=== PATIENT | female | born 1955 | race Caucasian/White ===

== ENCOUNTER 2024-09-24 23:32 | Inpatient (IN) | payer MEDICAID ==
[~2024-09-24] VITALS: Ht 170.2 cm; Wt 117.5 kg
[2024-09-25] VITALS (12 sets, daily range): BP systolic 84–129; BP diastolic 53–77; PULSE 74–95; RESP 14–18; TEMP 96.4–98.7; O2SAT 94–99
[2024-09-25 00:32] LABS: BASOPHILS % (AUTO) 0.4 % (0-1); EOSINOPHILS % (AUTO) 0.3 % (0-6); HEMATOCRIT 38.1 % (35.0-45.0); HEMOGLOBIN 12.7 g/dl (12.0-16.0); LYMPHOCYTES # (AUTO) 1.3 X10'3 (1.1-4.8); LYMPHOCYTES % (AUTO) 15.5 % (21-51); MEAN CORPUSCULAR HEMOGLOBIN 29.9 PG (27.0-31.0); MEAN CORPUSCULAR HGB CONC 33.3 g/dL (33.0-36.5); MEAN PLATELET VOLUME 7.4 FL (7.4-10.4); MONOCYTES # (AUTO) 0.8 X10'3 (0-0.9); MONOCYTES % (AUTO) 9.2 % (2-12); NEUTROPHILS # (AUTO) 6.3 X10'3 (1.8-7.7); NEUTROPHILS % (AUTO) 74.6 % (42-75); PLATELET COUNT 141 X10'3 (140-440); RED BLOOD COUNT 4.23 X10'6 (4.20-5.60); RED CELL DISTRIBUTION WIDTH 14.1 % (11.5-14.5); WHITE BLOOD COUNT 8.5 X10'3 (4.5-11.0)
[2024-09-25 00:37] LABS: APTT 56 SECONDS (22-32); INR 1.1 INR
[2024-09-25 00:52] LABS: ABG HCO3 19.6 mmol/L (21.0-28.0); ABG OXYGEN SATURATION 95.4 % (94.0-98.0); ABG PH (T) 7.396 (7.350-7.450); ABG PO2 (T) 73.8 mmHg (83.0-108.0); ALLEN'S TEST Modified; FCOHb 0.3 % (0.5-1.5); FHHb 4.6 % (0.0-5.0); FLOW 15 L/min; FMetHb 0.3 % (0.0-1.5); FO2Hb 94.8 % (94.0-98.0); MODE MASK - NRB; TOTAL HEMOGLOBIN 13.3 G/dl (12.0-16.0)
[2024-09-25] MEDS: heparin 25,000 UNIT/250ml bag 250 ML IV PRN ×2 (01:02→03:27)
[2024-09-25] MEDS: heparin 10,000 units/1 ML INJ IV PRN ×2 (01:02→05:42)
[2024-09-25] MEDS: MESSAGE TO NURSING IV ONE ×4 (01:15→22:15)
[2024-09-25 01:16] LABS: D-DIMER 16.42 MG/L FEU (0-0.50)
[2024-09-25 01:30] LABS: ALANINE AMINOTRANSFERASE 28 U/L (12-78); ALBUMIN 3.2 G/DL (3.4-5.0); ALKALINE PHOSPHATASE 65 IU/L (46-116); ANION GAP 8 (8-16); ASPARTATE AMINO TRANSFERASE 29 U/L (10-37); BILIRUBIN,TOTAL 0.7 MG/DL (0.1-1.0); BLOOD UREA NITROGEN 22 MG/DL (7-18); BUN/CREATININE RATIO 24.4 (10.0-20.0); CALCIUM 8.5 MG/DL (8.5-10.1); CHLORIDE 110 MMOL/L (99-107); GLUCOSE 133 MG/DL (70-104); POTASSIUM 3.4 MMOL/L (3.5-5.1); SODIUM 144 MMOL/L (135-145); TOTAL PROTEIN 6.3 G/DL (6.4-8.2); eCRCL 57 ML/MIN; eGFR 62 ML/MIN
[2024-09-25] MEDS ORDERED: iohexol 350MG/ML 100ml bottle IV ONE (01:42)
[2024-09-25] MEDS: normal saline 1000ml 1,000 ML IV ONE (02:27)
[2024-09-25] MEDS: amiodarone 150mg/dext, iso-os 100 ML IV ONE (03:01)
[2024-09-25] MEDS: HEPARIN DRIP DVT/PE -**PHARMACIST TO DOSE IV ONE (03:27)
[2024-09-25] MEDS: HEPARIN DRIP INITAL BOLUS --- DO NOT GIVE/ORDER MC ONE ×2 (03:28)
[2024-09-25] MEDS ORDERED: magnesium sulf-water 2g/50mL 50 ML IV PRN (03:50)
[2024-09-25] MEDS ORDERED: magnesium Cl slow-release 64mg tablet PO PRN (03:50)
[2024-09-25] MEDS: PERFLUTREN PROTEIN-A MICROSPHR (Optison) 0.22 MG/ML 3ML VIAL IV ONE (03:50)
[2024-09-25] MEDS ORDERED: magnesium hydroxide 30ml (MOM) UD suspension PO PRN (03:50)
[2024-09-25] MEDS ORDERED: magnesium sulf-water 4G/100mL 100 ML IV PRN (03:50)
[2024-09-25] MEDS ORDERED: morphine 2 MG/ML inj. syringe IV PRN ×2 (03:50)
[2024-09-25] MEDS ORDERED: mag hydrox/Alum hydrox/simeth 30ml oral suspension PO PRN (03:50)
[2024-09-25] MEDS ORDERED: potassium Cl 40MEQ/1/2NS 520ml 520 ML IV PRN (03:50)
[2024-09-25] MEDS ORDERED: ondansetron/PF 4mg/2ml inj IV PRN (03:50)
[2024-09-25] MEDS ORDERED: acetaminophen 325mg tablet PO PRN (03:50)
[2024-09-25 04:19] LABS: HEMOGLOBIN A1C 5.4 % (4.5-6.2)
[2024-09-25] MEDS ORDERED: LISI10TA27 PO (04:24)
[2024-09-25] MEDS ORDERED: POTASSIUM (04:24)
[2024-09-25] MEDS ORDERED: LURA40TA4 PO (04:24)
[2024-09-25] MEDS ORDERED: FURO20TA4 PO (04:24)
[2024-09-25] MEDS ORDERED: OLAN10TA73 PO (04:24)
[2024-09-25] MEDS ORDERED: OLAN15TA97 PO (04:24)
[2024-09-25] MEDS ORDERED: METF-438 PO (04:27)
[2024-09-25] MEDS ORDERED: LURA40TA4 (04:28)
[2024-09-25] MEDS ORDERED: BENZ0.5T3 (04:29)
[2024-09-25] MEDS: magnesium sulf-water 2g/50mL 50 ML IV ONE (04:40)
[2024-09-25] MEDS: normal saline 1000ml 1,000 ML IV SCH (04:41)
[2024-09-25 04:54] LABS: BILIRUBIN,URINE SMALL (Neg); CLARITY,URINE SLIGHTLY CLOUDY (Clear); COLOR,URINE YELLOW (Yellow); GLUCOSE, URINE NEGATIVE (Neg); KETONES,URINE TRACE mg/dl (Neg); LEUKOCYTE ESTERASE ,URINE TRACE (Neg); NITRITES, URINE NEGATIVE (Neg); OCCULT BLOOD,URINE LARGE (Neg); PROTEIN,URINE 100 mg/dl (Neg); UROBILINOGEN,URINE 0.2 E.U/dL (0.2-1.0)
[2024-09-25 04:56] LABS: UA COLLECTION TYPE FOLEY CATH
[2024-09-25 04:57] LABS: BACTERIA,URINE FEW /HPF (Neg); MUCUS STRANDS FEW /LPF (Neg); RBC,URINE 20-50 /HPF (0-2); SQUAMOUS EPITHELIAL CELL,UR FEW /LPF (FEW)
[2024-09-25 05:15] LABS: THYROID STIMULATING HORMONE 0.43 ulU/ml (0.34-4.50)
[2024-09-25 05:22] LABS: URINE AMPHETAMINE SCREEN NEGATIVE (Neg); URINE BARBITUATE SCREEN NEGATIVE (Neg); URINE BENZODIAZEPINES SCREEN NEGATIVE (Neg); URINE CANNABINOID SCREEN POSITIVE (Neg); URINE COCAINE SCREEN NEGATIVE (Neg); URINE METHADONE SCREEN NEGATIVE (Neg); URINE OPIATE SCREEN NEGATIVE (Neg); URINE PHENCYCLIDINE SCREEN NEGATIVE (Neg)
[2024-09-25] MEDS: amiodarone/D5 360MG/200ML BAG 200 ML IV SCH (06:07)
[2024-09-25] MEDS: docusate sod 100mg capsule PO SCH (08:00)
[2024-09-25] MEDS: K and/or MAG REPLACEMENT MC SCH (08:00)
[2024-09-25] MEDS: pantoprazole 40 MG vial IV SCH (09:07)
[2024-09-25] MEDS: atorvastatin 20mg tablet PO SCH (17:00)
[2024-09-26] VITALS (7 sets, daily range): BP systolic 110–141; BP diastolic 65–87; PULSE 74–91; RESP 12–22; TEMP 97–99.8; O2SAT 94–98
[2024-09-26 04:31] LABS: BASOPHILS % (AUTO) 0.6 % (0-1); EOSINOPHILS # (AUTO) 0.2 X10'3 (0-0.9); EOSINOPHILS % (AUTO) 4.2 % (0-6); HEMATOCRIT 32.6 % (35.0-45.0); HEMOGLOBIN 10.6 g/dl (12.0-16.0); LYMPHOCYTES # (AUTO) 1.2 X10'3 (1.1-4.8); LYMPHOCYTES % (AUTO) 25.5 % (21-51); MEAN CORPUSCULAR HEMOGLOBIN 29.7 PG (27.0-31.0); MEAN CORPUSCULAR HGB CONC 32.7 g/dL (33.0-36.5); MEAN CORPUSCULAR VOLUME 90.9 FL (78-98); MEAN PLATELET VOLUME 7.7 FL (7.4-10.4); MONOCYTES # (AUTO) 0.4 X10'3 (0-0.9); MONOCYTES % (AUTO) 7.6 % (2-12); NEUTROPHILS % (AUTO) 62.1 % (42-75); PLATELET COUNT 124 X10'3 (140-440); RED BLOOD COUNT 3.58 X10'6 (4.20-5.60); RED CELL DISTRIBUTION WIDTH 14.2 % (11.5-14.5); WHITE BLOOD COUNT 4.8 X10'3 (4.5-11.0)
[2024-09-26 04:46] LABS: ALANINE AMINOTRANSFERASE 32 U/L (12-78); ALBUMIN 2.3 G/DL (3.4-5.0); ALBUMIN/GLOBULIN RATIO 0.9 (1.1-1.5); ALKALINE PHOSPHATASE 58 IU/L (46-116); ANION GAP 5 (8-16); ASPARTATE AMINO TRANSFERASE 32 U/L (10-37); BILIRUBIN,TOTAL 0.4 MG/DL (0.1-1.0); BLOOD UREA NITROGEN 17 MG/DL (7-18); BUN/CREATININE RATIO 24.3 (10.0-20.0); CALCIUM 7.7 MG/DL (8.5-10.1); CHLORIDE 115 MMOL/L (99-107); CHOL/HDL RATIO 2.6 (0.00-4.99); CHOLESTEROL 121 MG/DL (0-200); GLUCOSE 93 MG/DL (70-104); HDL CHOLESTEROL 46 MG/DL (35-60); LDL CHOLESTEROL 66 MG/DL (50-100); PHOSPHORUS 1.9 MG/DL (2.3-4.5); POTASSIUM 3.4 MMOL/L (3.5-5.1); SODIUM 147 MMOL/L (135-145); TOTAL CARBON DIOXIDE 26.7 MMOL/L (24-32); TOTAL PROTEIN 4.9 G/DL (6.4-8.2); TRIGLYCERIDES 72 MG/DL (20-135); eCRCL 73 ML/MIN; eGFR 83 ML/MIN
[2024-09-26] MEDS: MESSAGE TO NURSING IV ONE ×3 (05:10→20:40)
[2024-09-26] MEDS: potassium Cl 20 mEq SR tablet PO SCH (08:00)
[2024-09-26] MEDS: potassium Cl 20 mEq SR tablet PO PRN ×2 (21:39→21:44)
[2024-09-27] VITALS (9 sets, daily range): BP systolic 129–148; BP diastolic 74–79; PULSE 73–87; RESP 14–18; TEMP 96.9–99.5; O2SAT 92–99
[2024-09-27 02:11] LABS: BASOPHILS % (AUTO) 0.7 % (0-1); EOSINOPHILS # (AUTO) 0.2 X10'3 (0-0.9); EOSINOPHILS % (AUTO) 4.2 % (0-6); HEMATOCRIT 30.2 % (35.0-45.0); HEMOGLOBIN 10.1 g/dl (12.0-16.0); LYMPHOCYTES % (AUTO) 23.3 % (21-51); MEAN CORPUSCULAR HEMOGLOBIN 30.1 PG (27.0-31.0); MEAN CORPUSCULAR HGB CONC 33.4 g/dL (33.0-36.5); MEAN CORPUSCULAR VOLUME 90.2 FL (78-98); MEAN PLATELET VOLUME 8.1 FL (7.4-10.4); MONOCYTES # (AUTO) 0.4 X10'3 (0-0.9); MONOCYTES % (AUTO) 8.6 % (2-12); NEUTROPHILS # (AUTO) 2.8 X10'3 (1.8-7.7); NEUTROPHILS % (AUTO) 63.2 % (42-75); PLATELET COUNT 123 X10'3 (140-440); RED BLOOD COUNT 3.35 X10'6 (4.20-5.60); RED CELL DISTRIBUTION WIDTH 13.8 % (11.5-14.5); WHITE BLOOD COUNT 4.5 X10'3 (4.5-11.0)
[2024-09-27 02:21] LABS: ALANINE AMINOTRANSFERASE 31 U/L (12-78); ALBUMIN 2.5 G/DL (3.4-5.0); ALKALINE PHOSPHATASE 61 IU/L (46-116); ASPARTATE AMINO TRANSFERASE 25 U/L (10-37); BILIRUBIN,TOTAL 0.3 MG/DL (0.1-1.0); BLOOD UREA NITROGEN 15 MG/DL (7-18); BUN/CREATININE RATIO 21.7 (10.0-20.0); CALCIUM 7.9 MG/DL (8.5-10.1); CREATININE 0.69 MG/DL (0.40-0.90); GLUCOSE 93 MG/DL (70-104); MAGNESIUM 1.6 MG/DL (1.5-2.4); PHOSPHORUS 1.6 MG/DL (2.3-4.5); POTASSIUM 3.6 MMOL/L (3.5-5.1); SODIUM 147 MMOL/L (135-145); TOTAL CARBON DIOXIDE 27.6 MMOL/L (24-32); TOTAL PROTEIN 5.1 G/DL (6.4-8.2); eCRCL 74 ML/MIN; eGFR 84 ML/MIN
[2024-09-27 02:23] LABS: ANION GAP 4 (8-16); CHLORIDE 115 MMOL/L (99-107)
[2024-09-27] MEDS: MESSAGE TO NURSING IV ONE ×2 (02:30→09:20)
[2024-09-27] MEDS: apixaban 5mg tablet PO SCH (14:05)
[2024-09-27] MEDS ORDERED: morphine 2 MG/ML inj. syringe IV PRN (19:20)
[2024-09-27] MEDS: morphine 2 MG/ML inj. syringe IV PRN (20:34)
[2024-09-27] MEDS ORDERED: loperamide 2mg capsule PO PRN (23:25)
[2024-09-28] VITALS (8 sets, daily range): BP systolic 115–162; BP diastolic 62–86; PULSE 66–91; RESP 13–17; TEMP 97.2–98.2; O2SAT 94–98
[2024-09-28 07:06] LABS: BASOPHILS % (AUTO) 0.5 % (0-1); EOSINOPHILS # (AUTO) 0.1 X10'3 (0-0.9); EOSINOPHILS % (AUTO) 3.2 % (0-6); HEMATOCRIT 28.5 % (35.0-45.0); HEMOGLOBIN 9.6 g/dl (12.0-16.0); LYMPHOCYTES # (AUTO) 0.9 X10'3 (1.1-4.8); LYMPHOCYTES % (AUTO) 22.6 % (21-51); MEAN CORPUSCULAR HEMOGLOBIN 30.1 PG (27.0-31.0); MEAN CORPUSCULAR HGB CONC 33.6 g/dL (33.0-36.5); MEAN CORPUSCULAR VOLUME 89.7 FL (78-98); MONOCYTES # (AUTO) 0.3 X10'3 (0-0.9); MONOCYTES % (AUTO) 8.7 % (2-12); NEUTROPHILS # (AUTO) 2.6 X10'3 (1.8-7.7); PLATELET COUNT 116 X10'3 (140-440); RED BLOOD COUNT 3.18 X10'6 (4.20-5.60); RED CELL DISTRIBUTION WIDTH 13.6 % (11.5-14.5)
[2024-09-28] MEDS: pantoprazole 40mg Tablet.DR PO SCH (07:16)
[2024-09-28 07:39] LABS: ALANINE AMINOTRANSFERASE 23 U/L (12-78); ALBUMIN 2.5 G/DL (3.4-5.0); ALBUMIN/GLOBULIN RATIO 0.9 (1.1-1.5); ALKALINE PHOSPHATASE 55 IU/L (46-116); ANION GAP 5 (8-16); ASPARTATE AMINO TRANSFERASE 18 U/L (10-37); BILIRUBIN,TOTAL 0.4 MG/DL (0.1-1.0); BLOOD UREA NITROGEN 10 MG/DL (7-18); BUN/CREATININE RATIO 14.5 (10.0-20.0); CHLORIDE 113 MMOL/L (99-107); CREATININE 0.69 MG/DL (0.40-0.90); GLUCOSE 93 MG/DL (70-104); MAGNESIUM 1.7 MG/DL (1.5-2.4); PHOSPHORUS 2.9 MG/DL (2.3-4.5); POTASSIUM 3.5 MMOL/L (3.5-5.1); SODIUM 146 MMOL/L (135-145); TOTAL CARBON DIOXIDE 28.2 MMOL/L (24-32); TOTAL PROTEIN 5.2 G/DL (6.4-8.2); eCRCL 74 ML/MIN; eGFR 84 ML/MIN
[2024-09-28 10:26] LABS: C DIFF ANTIGEN NEGATIVE (NEGATIVE); C DIFF SPECIMEN=DIARRHEA? ACCEPTABLE; C DIFFICILE TOXINS A&B NEGATIVE (Neg)
[2024-09-28] MEDS: lurasidone 20mg tablet PO SCH (16:55)
[2024-09-29 02:00] VITALS: BP 132/70; PULSE 77; RESP 14; TEMP 97.8; O2SAT 97
[2024-09-29 06:00] VITALS: BP 160/91; PULSE 89; RESP 18; TEMP 97.9; O2SAT 95
[2024-09-29 06:08] LABS: BASOPHILS % (AUTO) 0.6 % (0-1); EOSINOPHILS # (AUTO) 0.2 X10'3 (0-0.9); EOSINOPHILS % (AUTO) 3.7 % (0-6); HEMATOCRIT 29.6 % (35.0-45.0); LYMPHOCYTES # (AUTO) 1.1 X10'3 (1.1-4.8); LYMPHOCYTES % (AUTO) 27.1 % (21-51); MEAN CORPUSCULAR HEMOGLOBIN 30.4 PG (27.0-31.0); MEAN CORPUSCULAR HGB CONC 33.8 g/dL (33.0-36.5); MEAN CORPUSCULAR VOLUME 90.1 FL (78-98); MEAN PLATELET VOLUME 8.1 FL (7.4-10.4); MONOCYTES # (AUTO) 0.3 X10'3 (0-0.9); MONOCYTES % (AUTO) 7.9 % (2-12); NEUTROPHILS # (AUTO) 2.5 X10'3 (1.8-7.7); NEUTROPHILS % (AUTO) 60.7 % (42-75); PLATELET COUNT 130 X10'3 (140-440); RED BLOOD COUNT 3.29 X10'6 (4.20-5.60); RED CELL DISTRIBUTION WIDTH 13.6 % (11.5-14.5); WHITE BLOOD COUNT 4.2 X10'3 (4.5-11.0)
[2024-09-29 06:20] LABS: ALANINE AMINOTRANSFERASE 28 U/L (12-78); ALBUMIN 2.6 G/DL (3.4-5.0); ALBUMIN/GLOBULIN RATIO 0.9 (1.1-1.5); ALKALINE PHOSPHATASE 57 IU/L (46-116); ANION GAP 4 (8-16); ASPARTATE AMINO TRANSFERASE 22 U/L (10-37); BILIRUBIN,TOTAL 0.4 MG/DL (0.1-1.0); BLOOD UREA NITROGEN 10 MG/DL (7-18); BUN/CREATININE RATIO 16.7 (10.0-20.0); CALCIUM 8.5 MG/DL (8.5-10.1); CHLORIDE 112 MMOL/L (99-107); GLUCOSE 95 MG/DL (70-104); MAGNESIUM 1.7 MG/DL (1.5-2.4); POTASSIUM 4.2 MMOL/L (3.5-5.1); SODIUM 148 MMOL/L (135-145); TOTAL CARBON DIOXIDE 32.1 MMOL/L (24-32); TOTAL PROTEIN 5.4 G/DL (6.4-8.2); eCRCL 85 ML/MIN; eGFR > 90 ML/MIN
[2024-09-29 08:00] VITALS: RESP 18; O2SAT 95
[2024-09-29 11:00] VITALS: BP 126/91; PULSE 93; RESP 16; TEMP 97.4; O2SAT 94
[2024-09-29 15:00] VITALS: BP 135/75; PULSE 75; RESP 18; TEMP 97.4; O2SAT 96
[2024-09-29] MEDS ORDERED: APIX5TAB3 PO (18:03)
[2024-09-30] MEDS ORDERED: ATOR40TA PO (02:54)
[2024-09-30] MEDS ORDERED: MAGN400O6 PO (02:54)
[2024-09-30] MEDS ORDERED: LOPE2CAP14 PO (02:54)
[2024-09-30] MEDS ORDERED: [UNRECOGNIZED DRUG - CODE] PO (02:54)
[2024-09-30] MEDS ORDERED: LURA40TA2 PO (02:54)
[2024-09-30] MEDS ORDERED: POTA-188 PO (02:54)
[2024-09-30] MEDS ORDERED: PANT40TA54 PO (02:54)
[2024-09-30] MEDS ORDERED: APIX5TAB3 PO (02:54)
== END 2024-09-29 17:31 | DRG 817 ==
LOC: EDSEX 23:35 → ER 23:35 → ED HOLD 09-25 03:24 → PCU 3S 09-25 07:13
PROVIDERS: ADMIT Surgery Surgical Critical Care; ATTEND Internal Medicine
PROC: B32T1ZZ Computerized Tomography (CT Scan) of Left Pulmonary Artery using Low Osmolar Contrast (ICD-10-PCS; principal; 2024-09-25)
PROC: B32S1ZZ Computerized Tomography (CT Scan) of Right Pulmonary Artery using Low Osmolar Contrast (ICD-10-PCS; 2024-09-25)
DX: T50.992A Poisoning by other drugs, medicaments and biological substances, intentional self-harm, initial encounter (principal); I26.99 Other pulmonary embolism without acute cor pulmonale; I21.A1 Myocardial infarction type 2; G93.41 Metabolic encephalopathy; E87.0 Hyperosmolality and hypernatremia; E27.8 Other specified disorders of adrenal gland; E87.6 Hypokalemia; E78.5 Hyperlipidemia, unspecified; F32.A Depression, unspecified; E11.65 Type 2 diabetes mellitus with hyperglycemia; F20.9 Schizophrenia, unspecified; I47.20 Ventricular tachycardia, unspecified; Z79.01 Long term (current) use of anticoagulants; Y92.89 Other specified places as the place of occurrence of the external cause; Z79.84 Long term (current) use of oral hypoglycemic drugs
CPT/HCPCS: 36415; 36600; 71275; 80053; 80061; 80305; 81001; 82803; 82948; 83036; 83605; 83735; 84100; 84132; 84145; 84443; 84484; 85018; 85025; 85379; 85610; 85651; 85730; 87081; 87088; 87324; 87449; 92508; 92616; 93005; 93306; 96361; 96374; 96375; 97161; 97530; 99291; 99292; G0378; J0282; J1644; J2270; J2470; J7030; J7040; Q9967